=== PATIENT | male | born 1940 | race Caucasian/White ===

== ENCOUNTER 2017-01-18 17:47 | Emergency (ER) | payer OTHER ==
[~2017-01-18] VITALS: Ht 182.9 cm; Wt 79.4 kg
[2017-01-18] MEDS ORDERED: TETANUS-DIPTH-ACEL PERTUSSIS 0.5ML SYRG IM ONE (18:45)
[2017-01-18 18:54] VITALS: BP 116/60
[2017-01-18] MEDS ORDERED: LIDOCAINE 1% HCL (LOCAL ANESTH.) INJ 20ML MDV IJ ONE (19:00)
[2017-01-18] MEDS ORDERED: BACITRACIN TOP OINT 1 UD PKG TOP ONE (19:45)
== END 2017-01-18 20:12 | disposition home or self-care (01) ==
LOC: ER 17:59
DX: S61.213A Laceration without foreign body of left middle finger without damage to nail, initial encounter (principal); S61.215A Laceration without foreign body of left ring finger without damage to nail, initial encounter; M19.90 Unspecified osteoarthritis, unspecified site; Z23 Encounter for immunization; W31.89XA Contact with other specified machinery, initial encounter; Y93.89 Activity, other specified; Y99.8 Other external cause status; Y92.89 Other specified places as the place of occurrence of the external cause
CPT/HCPCS: 12001; 73130; 90471; 90715